=== PATIENT | female | born 1960 | race Two or more races ===

== ENCOUNTER 2025-01-19 14:41 | Emergency (ER) | payer BC ==
[~2025-01-19] VITALS: Ht 157.5 cm; Wt 77.1 kg
[2025-01-19 17:33] VITALS: BP 123/65; O2SAT 99
[2025-01-19] MEDS ORDERED: TRAMADOL HCL E100 M1 (17:37)
[2025-01-19] MEDS ORDERED: CYCLOBENZAPRINE10 MG PO (17:39)
[2025-01-19] MEDS ORDERED: ATOMOXETINE HCL60 MG PO (17:41)
[2025-01-19] MEDS ORDERED: ZESTRIL5 MG (17:41)
[2025-01-19] MEDS ORDERED: ACETAMINOPHEN 500 MG GEL..CAP PO ONE (18:15)
[2025-01-19] MEDS ORDERED: DEXAMETHASONE SODIUM PHOSPHATE 4 MG/ML VIAL IM ONE (18:15)
[2025-01-19] MEDS ORDERED: ORPHENADRINE CITRATE 30 MG/ML AMPUL IM ONE (18:15)
[2025-01-19 20:36] LABS: BASO % 0.6 % (0.1-1.2); EOS # 0.18 (0.04-0.54); EOS % 2.6 % (0.7-7.0); LYMPH # 1.90 (1.18-3.74); LYMPH % 27.4 % (19.3-53.1); MEAN PLATELET VOLUME 10.40 fl (9.4-12.4); MONO # 0.55 (0.24-0.82); MONO % 7.9 % (4.7-12.5); NEUT # 4.26 (1.56-6.13); NEUT % 61.4 % (34.0-71.1); RED CELL DISTRIBUTION WIDTH 13.9 % (11.6-14.4)
[2025-01-19 21:09] LABS: ALT/SGPT 87.0 U/L (12-78); AST/SGOT 76.0 U/L (15-37); BILIRUBIN TOTAL 0.67 mg/dL (0.3-1.2); BUN CREA RATIO 16.0 (7.0-25.0); CREATININE SERUM 1.13 mg/dL (0.55-1.02); GFR 48.79; GLOBULINA 3.2 G/DL (2.4-3.5); GLUCOSE FASTING 78.0 mg/dL (65-100); OSMOLALITY SERUM 262.0 MOSM/KG (275-295)
[2025-01-19] MEDS ORDERED: KETO10TA2 PO (22:34)
[2025-01-19] MEDS ORDERED: PEPCID AC20 MG PO (22:34)
[2025-01-19] MEDS ORDERED: NORFLEX100MG PO (22:34)
== END 2025-01-20 01:03 | disposition home or self-care (01) ==
LOC: ER 14:42
PROVIDERS: General Practice
DX: M54.50 Low back pain, unspecified (principal); W18.39XA Other fall on same level, initial encounter; Y93.89 Activity, other specified; Y92.59 Other trade areas as the place of occurrence of the external cause; Z88.2 Allergy status to sulfonamides; Z88.6 Allergy status to analgesic agent